=== PATIENT | male | born 1955 | race Caucasian/White ===

== ENCOUNTER 2022-06-11 00:58 | Emergency (ER) | payer MEDICARE, OTHER ==
[2022-06-11] MEDS ORDERED: methylPREDNISolone Sodium Succinate 40 MG/1 ML SDV IVPUSH ONE (01:59)
[2022-06-11] MEDS ORDERED: fentaNYL 50 MCG/ML SDV IVPUSH ONE (01:59)
[2022-06-11 02:11] LABS: TROPONIN I HIGH SENSITIVITY 6.8 pg/mL (<=60.3)
== END 2022-06-11 03:25 | disposition home or self-care (01) ==
LOC: JP.ED 00:58
DX: M25.512 Pain in left shoulder (principal); I10 Essential (primary) hypertension
CPT/HCPCS: 36415; 80048; 84484; 85025; 93005; 96374; 96375; 99284; J2920; J3010; 93010; 99283